=== PATIENT | male | born 1990 | race Caucasian/White ===

== ENCOUNTER 2019-06-15 17:36 | Inpatient (IN) | payer MEDICAID ==
[~2019-06-15] VITALS: Ht 170.2 cm; Wt 92.1 kg
--- NOTE | 2019-06-15 17:36 | NUR ---
PT BIBA BLS TO ER BED 03
[2019-06-15 17:45] VITALS: BP 143/83
[2019-06-15] MEDS ORDERED: ONDANSETRON 4 MG/2 ML VIAL ONE (17:58)
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
--- NOTE | 2019-06-15 18:09 | NUR ---
IVP ZOFRAN GIVEN PER ERMD VERBAL ORDER.
--- NOTE | 2019-06-15 18:27 | NUR ---
XRAY AT BEDSIDE
[2019-06-15] MEDS ORDERED: ONDANSETRON 4 MG/2 ML VIAL IVP ONE (18:30)
[2019-06-15 18:31] LABS: BASOPHILS # (AUTO) 0.1 K/uL (0.00-0.22); BASOPHILS % (AUTO) 0.9 % (0.0-2.0); EOSINOPHILS # (AUTO) 0.4 K/uL (0-0.4); EOSINOPHILS % (AUTO) 3.2 % (0.0-4.0); HEMATOCRIT 44.7 % (36-52); HEMOGLOBIN 14.5 g/dL (12.0-18.0); LYMPHOCYTES # (AUTO) 5.2 K/uL (2.0-11.5); LYMPHOCYTES % (AUTO) 43.7 % (20.5-51.1); MEAN CORPUSCULAR HEMOGLOBIN 30 pg (27-31); MEAN CORPUSCULAR HGB CONC 33 g/dL (33-37); MONOCYTES # (AUTO) 0.8 K/uL (0.8-1.0); NEUTROPHILS # (AUTO) 5.4 K/uL (1.8-7.7); NEUTROPHILS % (AUTO) 45.2 % (42.2-75.2); PLATELET COUNT (AUTO) 302 K/uL (140-450); RED BLOOD CELL COUNT(AUTO) 4.91 MIL/uL (4.20-6.10); RED CELL DISTRIBUTION WIDTH 13.9 % (11.6-13.7)
--- NOTE | 2019-06-15 18:41 | NUR ---
PATIENT UNABLE TO PROVIDE URINE SAMPLE AT THIS TIME. ERMD NOTIFIED.
[2019-06-15 18:47] LABS: ALBUMIN 3.7 g/dL (3.4-5.0); ANION GAP 12.6 (8-16); CARBON DIOXIDE 27.8 mmol/L (21-32); CREATININE 0.9 mg/dL (0.6-1.3); POTASSIUM 3.4 mmol/L (3.5-5.1); TOTAL BILIRUBIN 0.2 mg/dL (0.0-1.0)
[2019-06-15] MEDS ORDERED: PIPERACILLIN/TAZOBACTAM 3.375 GM in DEXTROSE 5% 50 ML IV ONE (19:00)
[2019-06-15] MEDS ORDERED: VANCOMYCIN 1,000 MG in DEXTROSE 5% 250 ML IV ONE (19:00)
--- NOTE | 2019-06-15 19:00 | NUR ---
PATIENT IS ASLEEP AND AROUSABLE TO PAIN. DOCTOR SERA ADVISED PLACING MASK ON PATIENT FOR POSSIBLE EARLY SIGNS OF COVID 19. MASK PUT ON PT. BED AT LOWEST, LOCKED, RAILS UP X 2.
--- NOTE | 2019-06-15 19:07 | NUR ---
LEFT MESSAGE TO CALL US BACK FOR ADVICE IN R/O COVID-19
--- NOTE | 2019-06-15 19:08 | NUR ---
FLU SWAB COLLECTED.
[2019-06-15] MEDS ORDERED: PIPERACILLIN/TAZOBACTAM 3.375 GM VIAL IV ONE (19:09)
[2019-06-15] MEDS ORDERED: LORazepam 2 MG/ML VIAL IM/IVP PRN (19:15)
[2019-06-15] MEDS ORDERED: DOCUSATE SODIUM 100 MG GELCAP PO PRN (19:15)
[2019-06-15] MEDS ORDERED: ONDANSETRON 4 MG/2 ML VIAL IM/IVP PRN (19:15)
[2019-06-15] MEDS ORDERED: ACETAMINOPHEN 325 MG TAB PO PRN (19:15)
[2019-06-15] MEDS ORDERED: ALBUTEROL SULFATE/IPRATROPIU 3 ML SOL IH PRN (19:15)
[2019-06-15] MEDS ORDERED: HYDROcodone/APAP 5/325 MG 1 TAB TAB PO PRN (19:15)
[2019-06-15] MEDS ORDERED: MORPHINE SULFATE 2 MG/ML SYR IVP PRN (19:15)
[2019-06-15] MEDS ORDERED: KCL 20 MEQ/WATER INJ PREMIX 100 ML IV SCH (19:20)
[2019-06-15] MEDS ORDERED: VANCOMYCIN 1,000 MG VIAL ONE (19:37)
[2019-06-15 19:51] LABS: PROTHROMBIN TIME 9.1 secs (10.8-13.4)
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
[2019-06-15 19:57] LABS: MAGNESIUM 2.4 mg/dL (1.8-2.4); PHOSPHORUS 2.6 mg/dL (2.5-4.9); THYROID STIMULATING HORMONE 0.89 uIU/mL (0.34-3.74)
[2019-06-15 20:00] VITALS: BP 108/63
--- NOTE | 2019-06-15 20:00 | NUR ---
MD ORDERED COVID 19 PRECAUTIONS. SWAB COMPLETED AT BEDSIDE AND SENT TO LAB.
--- NOTE | 2019-06-15 20:05 | NUR ---
PROVIDED PATIENT WITH BEDPAN AND URINAL, VOIDED 900 ML OF CLEAR YELLOW URINE, COLLECTED URINE SAMPLE AND MRSA SWAB AND SENT TO LAB. STARTED ORDERS FOR IV FLUID MAINTENANCE AND IV ANTIBIOTICS-ZOSYN AND VANCOMYCIN.
[2019-06-15] MEDS ORDERED: AZITHROMYCIN 500 MG in DEXTROSE 5% 250 ML IV SCH (20:20)
[2019-06-15] MEDS: DEXT 5% / NACL 0.45% 1,000 ML IV SCH (20:30)
[2019-06-15] MEDS ORDERED: ALBUTEROL HFA MDI 90 MCG/ACTUATION 8 GM INH PRN (20:30)
[2019-06-15] MEDS ORDERED: THIAMINE 200 MG/2 ML VIAL IM SCH (20:35)
[2019-06-15] MEDS ORDERED: MULTIVITAMIN-12 10 ML, THIAMINE 100 MG, MAGNESIUM SULFATE 50% 2,000 MG, FOLIC ACID 1 MG... IV SCH ×5 (20:40)
--- NOTE | 2019-06-15 20:44 | NUR ---
Patient will be admitted to care of DR RIOS. Admited to ICU . Will go to room 1. Belongings list completed. Report to GAUDENCIO GARCIA.
[2019-06-15 21:10] LABS: APPEARANCE,URINE CLEAR (CLEAR); BILIRUBIN,URINE NEGATIVE (NEGATIVE); BLOOD, URINE NEGATIVE (NEGATIVE); COLOR,URINE YELLOW (YELLOW); LEUKOCYTE ESTERASE ,URINE NEGATIVE (NEGATIVE); NITRITE, URINE NEGATIVE (NEGATIVE); PH,URINE 6.5 (5.0-9.0); UGLUCOSE NEGATIVE (NEGATIVE)
[2019-06-15 21:22] LABS: BARBITURATE, URINE NEGATIVE ng/ml (NEG <=200); BENZODIAZEPINE, URINE NEGATIVE ng/mL (NEG <=200); CANNABINOID, URINE POSITIVE ng/mL (NEG <=50); COCAINE, URINE NEGATIVE ng/mL (NEG <=300); OPIATE, URINE NEGATIVE ng/mL (NEG <=2000); PHENCYCLIDINE SCREEN,URINE NEGATIVE ng/mL (NEG <=25)
--- NOTE | 2019-06-15 22:45 | NUR ---
PATIENT COUGHING LOUDLY AND MOANING. ORIENTED TO EMESIS BAG AT BEDSIDE. PT VOMITING YELLOW EMESIS. PROVIDED SKIN CARE AND CHANGED LINEN AND GOWNS. ORIENTED PATIENT TO EMESIS BAG AND PT REPORTS " I TRIED TO VOMIT IN THE BAG, BUT I COULDN'T". WILL PROVIDE ZOFRAN IVP.
[2019-06-15] MEDS ORDERED: AZITHROMYCIN 500 MG INJ VIAL IV ONE (22:48)
--- NOTE | 2019-06-15 23:03 | NUR ---
PHONE CALL TO DR YANEZ; VERIFIED BANANA BAG; DR YANEZ SAID TO GIVE IT IN AM WHEN PHARMACY IS HERE, ONE BAG ONLY
--- NOTE | 2019-06-15 23:20 | NUR ---
PT MOANING AND CRYING AND SAYING HE WANTS TO GO HOME AND GET OUT OF HERE. KEEPS TOSSING AND TURNING IN BED. ASKED IF HE IS IN PAIN, REPLIES HE WANTS TO PEE. PROVIDED URINAL AND VOIDED 500 ML CLEAR YELLOW URINE. PT ACCIDENTLY YANKED PERIPHERAL IV AT LEFT AC. STARTED NEW IV TO RIGHT HAND 22G. FLUSHED AND PATENT, ASYMPTOMATIC. PROVIDED ATIVAN IVP FOR AGITATION. PT RELAXES AND CALMS DOWN WITH REORIENTATION. PROVIDED WITH MORE BLANKETS AND PILLOWS.
[2019-06-15] MEDS: FOLIC ACID 1 MG TAB PO SCH (23:23)
[2019-06-15] MEDS: THIAMINE 100 MG TAB PO SCH (23:23)
[2019-06-15] MEDS: MULTIVITAMIN 1 TAB PO SCH (23:23)
[2019-06-15] MEDS: chlordiazePOXIDE 25 MG CAP PO SCH (23:24)
--- NOTE | 2019-06-15 23:35 | NUR ---
PATIENT RESPONDS TO VOICE AND LIGHT PAIN, BUT VERY DROWSY. CAN OPEN EYES WITH HARD STERNAL RUB. DIFFICULT TO FOLLOW COMMANDS. RN CONSISTENTLY REORIENTS PATIENT. PATIENT REQUESTING WATER. PROVIDED A SMALL AMOUNT OF WATER FOR SCHEDULED PO MEDS. TOLERATED WELL. SIDERAILS UP x3, BED LOCKED AND IN LOWEST POSITION. WILL CONTINUE TO MONITOR.
[2019-06-16] VITALS (7 sets, daily range): BP systolic 117–135; BP diastolic 56–106
--- NOTE | 2019-06-16 01:15 | NUR ---
ORDERED IV ANTIBIOTICS INFUSION COMPLETE, NO SIGNS OF ADVERSE REACTION. ALL MEDS GIVEN, TOLERATED WELL. NO COMPLAINTS OF NAUSEA. REORIENTED PATIENT TO CAREPLAN. ALL NEEDS MET AT THIS TIME.
--- NOTE | 2019-06-16 02:12 | NUR ---
PATIENT RESTING WELL IN BED, SELF TURNS. ON ROOM AIR, ALL VITALS WITHIN NORMAL LIMITS. IV MAINTENANCE FLUIDS INFUSING AND KCL 20 MEQ CURRENTLY INFUSING. VISIBLE CHEST RISE AND FALL, NO SIGNS/SYMPTOMS OF DISTRESS. AUDIBLE SNORING. CALL LIGHT WITHIN REACH. WILL CONTINUE TO MONITOR.
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
--- NOTE | 2019-06-16 04:45 | NUR ---
VOIDED 800 ML YELLOW CLEAR URINE
[2019-06-16] MEDS ORDERED: cefTRIAXone 1,000 MG VIAL ONE (04:55)
--- NOTE | 2019-06-16 05:43 | NUR ---
PATIENT GAVE RN 3 NUMBERS TO CALL TO CONTACT FAMILY. REQUESTING TO CALL FATHER OR MOTHER TO NOTIFY OF HIS CONDITION AND BEING ADMITTED. MADE A CALL TO PATIENTS FATHER, JAZMYN EDWARDS, CALLED TWICE WITH NO ANSWER. LEFT A MESSAGE TO CALL BACK. CALLED PATIENTS MOTHER AND UPDATED ON PATIENTS CONDITION.
[2019-06-16 06:11] LABS: BASOPHILS # (AUTO) 0.1 K/uL (0.00-0.22); BASOPHILS % (AUTO) 0.8 % (0.0-2.0); EOSINOPHILS # (AUTO) 0.1 K/uL (0-0.4); EOSINOPHILS % (AUTO) 1.4 % (0.0-4.0); HEMATOCRIT 43.4 % (36-52); HEMOGLOBIN 14.4 g/dL (12.0-18.0); LYMPHOCYTES # (AUTO) 3.2 K/uL (2.0-11.5); LYMPHOCYTES % (AUTO) 38.5 % (20.5-51.1); MEAN CORPUSCULAR HEMOGLOBIN 30 pg (27-31); MEAN CORPUSCULAR HGB CONC 33 g/dL (33-37); MEAN CORPUSCULAR VOLUME 90.7 fL (80-94); MONOCYTES # (AUTO) 0.6 K/uL (0.8-1.0); MONOCYTES % (AUTO) 6.8 % (1.7-9.3); NEUTROPHILS # (AUTO) 4.4 K/uL (1.8-7.7); NEUTROPHILS % (AUTO) 52.5 % (42.2-75.2); PLATELET COUNT (AUTO) 276 K/uL (140-450); RED BLOOD CELL COUNT(AUTO) 4.78 MIL/uL (4.20-6.10); WHITE BLOOD COUNT (AUTO) 8.3 K/uL (4.8-10.8)
[2019-06-16 06:31] LABS: CHOL/HDL RATIO 1.7 (1-4.5)
[2019-06-16 06:33] LABS: ANION GAP 13.3 (8-16); CARBON DIOXIDE 27.8 mmol/L (21-32); CREATININE 0.7 mg/dL (0.6-1.3); POTASSIUM 4.1 mmol/L (3.5-5.1)
--- NOTE | 2019-06-16 06:52 | NUR ---
RESTING WELL IN BED, SIDERAILS UP x3, HOB 30 DEGREES, CALL LIGHT WITHIN REACH, URINAL AT BEDSIDE. ON ROOM AIR, EQUAL CHEST RISE. NO SIGNS OF DISTRESS. FLACC 0. PERIPHERAL IV TO LEFT WRIST 22G, INFUSING IV FLUIDS @ 50ML/HR. WILL ENDORSE TO A.M NURSE.
[2019-06-16] MEDS ORDERED: ALBUTEROL SULFATE/IPRATROPIU 3 ML SOL IH SCH (07:00)
--- NOTE | 2019-06-16 07:09 | NUR ---
PATIENT ASLEEP AT THIS TIME. NO SOB. NO TREATMENT INDICATED.
--- NOTE | 2019-06-16 07:30 | NUR ---
RECEIVED BEDSIDE REPORT FROM KETTLEMAN RN. PT IS ASLEEP, EASILY AROUSABLE, ORIENTED. FOLLOWS COMMANDS AND ABLE TO MAKE NEEDS KNOWN. AFEBRILE. DENIES PAIN. NORMAL SINUS RHYTHM ON MONITOR. S1 S2 HEARD. PULSES PALPABLE TO ALL EXTREMITIES. CAP REFILL < 2 SEC. PT IS ON ROOM AIR, LUNGS SOUND CLEAR BILATERALLY. NO SOB, COUGH OR SIGNS OF RESPIRATORY DISTRESS NOTED. BREATHING EVEN AND UNLABORED. ABDOMEN SOFT, NONTENDER W/ ACTIVE BOWEL SOUNDS. PERIPHERAL IV G22 TO LEFT HAND ASYMPTOMATIC, PATENT AND INTACT, RUNNING IVF D5 1/2NS AT 80 ML/HR. PT IS CONTINENT BOWEL AND BLADDER. SKIN IS DRY AND WARM TO TOUCH, OLD SCAB TO LEFT HAND NOTED. HOB AT 30 DEGREES. BED IN LOWEST POSITION LOCKED. CALL LIGHT WITHIN REACH. WILL CONTINUE TO MONITOR.
[2019-06-16] MEDS: DEXT 5% / NACL 0.45% 1,000 ML IV SCH ×2 (07:43→16:10)
--- NOTE | 2019-06-16 07:45 | NUR ---
DR. RIOS AND RESIDENT GROUP IN TO SEE PT. WILL FOLLOW UP ON ORDERS.
[2019-06-16] MEDS ORDERED: FOLI1TAB90 PO (08:04)
[2019-06-16] MEDS ORDERED: MULT-405 PO (08:04)
[2019-06-16] MEDS ORDERED: LIB25 PO (08:04)
[2019-06-16] MEDS ORDERED: AZIT250T11 PO (08:04)
[2019-06-16] MEDS ORDERED: THIA-34 PO (08:04)
--- NOTE | 2019-06-16 08:30 | NUR ---
PT HAD 75% OF BREAKFAST, STATED "I FEEL NAUSEOUS AND CANNOT FINISH EVERYTHING." HOWEVER STATED HE DID NOT NEED ZOFRAN AT THIS TIME. PT WAS ABLE TO EAT INDEPENDENTLY, ON ROOM AIR, NO SOB NOTED. VSS. WILL CONTINUE TO MONITOR.
[2019-06-16] MEDS: FOLIC ACID 1 MG TAB PO SCH (08:32)
[2019-06-16] MEDS: chlordiazePOXIDE 25 MG CAP PO SCH ×3 (08:32→16:10)
[2019-06-16] MEDS: MULTIVITAMIN 1 TAB PO SCH (08:32)
[2019-06-16] MEDS: THIAMINE 100 MG TAB PO SCH (08:33)
--- NOTE | 2019-06-16 08:33 | NUR ---
MEDICATIONS ADMINISTERED ORDERED.
--- NOTE | 2019-06-16 08:44 | NUR ---
DISCHARGE PLANNING: THIS IS A 28 Y/O MALE PATIENT FROM HOME, WHO CAME IN DUE TO ALCOHOL INTOXICATION. PPAST MEDICAL HISTORY INCLUDE HTN, ADHD. INITIAL DIAGNOSIS OF R/O COVID AND PNA. CURRENT LABS INCLUDE WBC 8.3, H/H 14.4/43.4, BUN/CREA 144/4.1, BUN/CREA 7/0.7. NEGATIVE FOR INF A AND B. PCR PENDING. MRSA NARES, URINE AND BLOOD C/S PENDING. CXR SHOWED UNDEREXPANDED LUNGS WITH PULMONARY CONGESTION. ON AZITHROMYCIN AND ROCEPHIN. FOR DISCHARGE TODAY. Addendum: 06/17/19 at 1310 by Yoana Dias DC PLANNING: ARRANGED TRANSPORT WITH [employer] [facility] DIRECT[facility] TIME 5:30 HOME AD[address]ESS [address] [place] [facility] [id number] PER [facility] TRANSPORT [facility] ON [facility].
[2019-06-16] MEDS ORDERED: AZITHROMYCIN 250 MG TAB PO SCH (09:00)
--- NOTE | 2019-06-16 10:14 | NUR ---
PT SEEN AND EXAMINED BY DR. TAM. WILL FOLLOW UP ON ORDERS.
--- NOTE | 2019-06-16 10:26 | NUR ---
CHEST X-RAY AT BEDSIDE. PT TOLERATING WELL.
[2019-06-16] MEDS ORDERED: INFLUENZA VACCINE QUAD 0.5 ML SYR IMVAC PRN (11:00)
--- NOTE | 2019-06-16 11:00 | NUR ---
PT SIGNED ADMISSION PAPERWORK. ALCOHOL AND SUBSTANCE ABUSE RESOURCE PACKET GIVEN TO PT.
--- NOTE | 2019-06-16 11:30 | NUR ---
PER PT, HE HAS A PCP IN [place]. HE DOES NOT REMEMBER THE NAME OR ADDRESS BUT KNOWS THE LOCATION. INSTRUCTION GIVEN TO FOLLOW UP WITH PCP WITHIN 4 DAYS OF DISCHARGE. PT VERBALIZED UNDERSTANDING. Addendum: 06/16/19 at 1428 by Raza Bowden RN CORRECTION: INSTRUCTION GIVEN TO SELF QUARANTINE AT HOME AND PRACTICE SOCIAL DISTANCING, IF DISCHARGED. AND CALL FOR MEDICAL HELP IF SYMPTOMS SUCH FEVER, COUGH, SHORTNESS, CHEST PAIN, SWELLING, ETC. APPEARS. PT VERBALIZED UNDERSTANDING.
--- NOTE | 2019-06-16 12:10 | NUR ---
LUNCH TRAY PROVIDED. SCHEDULED MEDICATION ADMINISTERED. PT IS AFEBRILE, AAOX4, ON ROOM AIR, VSS, DENIES PAIN AT THIS TIME. SAFETY PRECAUTIONS IN PLACE. WILL CONTINUE TO MONITOR.
--- NOTE | 2019-06-16 14:00 | NUR ---
SPOKE WITH RADHA, CASEY SAW OPERATOR. PER RADHA, SHE IS STILL AWAITING RESPONSE FROM [facility] REGARDING DISCHARGE OF R/O COVID PATIENT. WILL FOLLOW UP.
--- NOTE | 2019-06-16 16:13 | NUR ---
SCHEDULED MEDICATION AND FLU VACCINE ADMINISTERED. PT TOLERATED WELL.
--- NOTE | 2019-06-16 17:45 | NUR ---
PT HAVING DINNER, NO S/SX OF ACUTE DISTRESS NOTED AT THIS TIME. VSS. SAFETY PRECAUTIONS IN PLACE, CALL LIGHT WITHIN REACH.
--- NOTE | 2019-06-16 19:03 | NUR ---
REPORT GIVEN TO FINANCIAL ADMINISTRATIVE ASSISTANT RN FOR CONTINUITY OF CARE. PT IS IN STABLE CONDITION.
--- NOTE | 2019-06-16 19:10 | NUR ---
RECEIVED REPORT FROM DAYSHIFT NURSE AT PATIENTS BEDSIDE, PATIENT RESTING WELL. EYES CLOSED, ALERT TO NAME/VOICE. ANOx4. DENIES PAIN,SOB, NAUSEA. ON ROOM AIR, LUNG SOUNDS ARE CLEAR ALL THROUGHOUT. SATURATIONS 98%, RR- 20. S1S2 ON MONITOR, HEART RATE 83 BPM. LEFT HAND PERIPHERAL IV, 22G, FLUSHED AND PATENT WITHOUT SYMPTOMS. INFUSING D51/2 NS @ 80ML. ABDOMEN LARGE ROUND AND NONTENDER, WITH ACTIVE BOWEL SOUND. PT CONTINENT, URINAL AT BEDSIDE. SKIN WARM AND DRY, AFEBRILE. SMALL HEALED SCAB AT LEFT HAND, NO DRAINAGE. PATIENT ABLE TO MOVE ALL EXTREMITIES. AND SELF TURN. ON DROPLET/CONTACT PRECAUTIONS FOR RULE OUT COVID.ORIENTED TO CARE PLAN AND TREATMENT. CALL LIGHT WITHIN REACH, BED LOCKED AND IN LOWEST POSITION, SIDERAILS UP x3.
--- NOTE | 2019-06-16 20:33 | NUR ---
RECEIVED REPORT FROM AM SHIFT. PATIENT RESTING IN BED AND APPEARS TO BE IN NO APPARENT RESPIRATORY DISTRESS AT THIS TIME: RR 17, HR 77, AND SPO2 97% ON ROOM AIR. UPPER LOBES BREATH SOUNDS: CLEAR BILATERALLY. LOWER BASES BREATH SOUNDS: CLEAR BILATERALLY. NO INDICATION FOR MDI TX AT THIS MOMENT. PT WAS INFORMED TO CALL RN OR RECORDIST CHIEF WHEN EXPERIENCING SOB PRN TX. WILL CONTINUE TO MONITOR PT.
[2019-06-16] MEDS ORDERED: NACL 0.9% 1,000 ML IV SCH (20:50)
[2019-06-16] MEDS ORDERED: CLINDAMYCIN 600 MG/4 ML VIAL ONE (21:03)
[2019-06-16] MEDS: CLINDAMYCIN 600 MG in DEXTROSE 5% 50 ML IV SCH (21:24)
--- NOTE | 2019-06-16 21:35 | NUR ---
RESTING COMFORTABLY. EYES CLOSED, ON ROOM AIR. NO SIGNS OR SYMPTOMS OF RESPIRATORY DISTRESS. FLACC 0. ADMINISTERED NEW ORDER FOR IV ANTIBIOTICS. SAFETY MEASURES IN PLACE.
--- NOTE | 2019-06-16 23:02 | NUR ---
EMPTIED PATIENTS URINAL, 800ML CLEAR YELLOW URINE. PROVIDED WIPES FOR PERINEAL CARE AND TO CLEAN HANDS. NO COMPLAINTS AT THIS TIME. PATIENT INSTABLE CONDITION. WILL CONTINUE TO MONITOR.
[2019-06-17] VITALS: BP 136/97
--- NOTE | 2019-06-17 01:36 | NUR ---
CHECKED IN ON PATIENT, WAKES UP, OPENS EYES, FOLLOWS COMMANDS, NO COMPLAINTS, GOES BACK TO SLEEP. ABLE TO SELF TURN. LEFT HAND SCAB HAS NO DRAINAGE, LEFT OPEN TO AIR. PATIENT ON ROOM AIR. CONNECTED TO PERSONAL BANKING OFFICER. ALL VITALS WITHIN NORMAL LIMITS. SKIN WARM AND DRY. CALL LIGHT WITHIN REACH, WILL CONTINUE TO MONITOR.
--- NOTE | 2019-06-17 03:15 | NUR ---
ON ROOM AIR, LUNG SOUNDS CLEAR, AWAKE AND ALERT. NO COMPLAINTS OF PAIN OR NAUSEA. PATIENT ORIENTED TO PLAN FOR DISCHARGE TODAY. REORIENTED ON ISOLATION INSTRUCTIONS FOR COVID. VERBALIZES UNDERSTANDING. INITIATED SUBSTANCE ABUSE EDUCATION, PATIENT VERBALIZES UNDERSTANDING AND REPORTS WILL TRY TO REALLY QUIT THIS TIME. PATIENT IN STABLE CONDITION. ALL VALUABLES AND CALL LIGHT WITHIN REACH.
[2019-06-17 04:00] VITALS: BP 126/46
[2019-06-17] MEDS ORDERED: CLINDAMYCIN 600 MG/4 ML VIAL ONE (04:02)
[2019-06-17] MEDS: CLINDAMYCIN 600 MG in DEXTROSE 5% 50 ML IV SCH ×2 (04:37→13:00)
--- NOTE | 2019-06-17 05:10 | NUR ---
PROVIDED PATIENT WITH TOOTHBRUSH/TOOTHPASTE AND WASH CLOTHES. STANDBY ASSISTANCE WITH MORNING CARE/SPONGE BATH. CHANGED GOWN AND SOCKS. LEFT HAND 22G PERIPHERAL IV STILL INTACT, NS INFUSING TO KEEP VEIN OPEN. MAINTAINED ON ROOM AIR, NO SHORTNESS OF BREATH OR DIFFICULTY BREATHING, NO N/V OR PAIN. PATIENT STABLE AND IN GOOD CONDITION. PROVIDED SMALL SNACK-JELLO AND CRACKERS. SAFETY MEASURES IN PLACE. WILL CONTINUE TO MONITOR.
[2019-06-17 06:16] LABS: BASOPHILS # (AUTO) 0.1 K/uL (0.00-0.22); BASOPHILS % (AUTO) 0.6 % (0.0-2.0); EOSINOPHILS # (AUTO) 0.4 K/uL (0-0.4); EOSINOPHILS % (AUTO) 4.1 % (0.0-4.0); HEMATOCRIT 45.2 % (36-52); LYMPHOCYTES # (AUTO) 2.7 K/uL (2.0-11.5); LYMPHOCYTES % (AUTO) 24.6 % (20.5-51.1); MEAN CORPUSCULAR HEMOGLOBIN 30 pg (27-31); MEAN CORPUSCULAR HGB CONC 33 g/dL (33-37); MONOCYTES # (AUTO) 0.8 K/uL (0.8-1.0); MONOCYTES % (AUTO) 7.3 % (1.7-9.3); NEUTROPHILS # (AUTO) 6.9 K/uL (1.8-7.7); NEUTROPHILS % (AUTO) 63.4 % (42.2-75.2); PLATELET COUNT (AUTO) 269 K/uL (140-450); RED BLOOD CELL COUNT(AUTO) 4.97 MIL/uL (4.20-6.10); RED CELL DISTRIBUTION WIDTH 13.8 % (11.6-13.7); WHITE BLOOD COUNT (AUTO) 10.9 K/uL (4.8-10.8)
[2019-06-17 06:41] LABS: ANION GAP 14.4 (8-16); CARBON DIOXIDE 25.5 mmol/L (21-32); CREATININE 0.9 mg/dL (0.6-1.3); POTASSIUM 3.9 mmol/L (3.5-5.1)
[2019-06-17 08:00] VITALS: BP 131/92
[2019-06-17] MEDS: THIAMINE 100 MG TAB PO SCH (08:42)
[2019-06-17] MEDS: MULTIVITAMIN 1 TAB PO SCH (08:42)
[2019-06-17] MEDS: chlordiazePOXIDE 25 MG CAP PO SCH ×2 (08:42→13:31)
[2019-06-17] MEDS: FOLIC ACID 1 MG TAB PO SCH (08:43)
[2019-06-17] MEDS ORDERED: LEVOFLOXACIN 750 MG TAB PO SCH (09:00)
[2019-06-17] MEDS ORDERED: CLIN300C2 PO (09:11)
[2019-06-17] MEDS ORDERED: LEVO750T2 PO (09:11)
[2019-06-17] MEDS ORDERED: LACT-81 PO (09:12)
--- NOTE | 2019-06-17 10:28 | NUR ---
Patient transferred via wheelchair wearing surgical mask to [facility] unit. Report given to Vania RATLIFF. Pt aaox4, no signs of distress in room air.
[2019-06-17 10:33] VITALS: BP 145/91
--- NOTE | 2019-06-17 10:33 | NUR ---
RECEIVED REPORT FROM TRANSFER PATIENT FROM ICU NURSE FOZIA. PT RESTING IN BED. ABLE TO MAKE NEEDS KNOWN. RESPIRATIONS EVEN AND UNLABORED WITH NO SOB OR RESPIRATORY DISTRESS. SKIN WARM AND DRY TO TOUCH. IV SITE IN LEFT HAND 22G IS CLEAN, DRY, AND INTACT. SAFETY MEASURES IN PLACE. WILL CONTINUE TO MONITOR.
--- NOTE | 2019-06-17 12:45 | NUR ---
PATIENT IS AWARE OF DISCHARGE. PICKUP TIME IS 1730 WITH [facility] AND THE PATIENT IS GOING TO HIS DAD'S HOUSE IN [place]
[2019-06-17] MEDS ORDERED: LIB25 PO (13:36)
--- NOTE | 2019-06-17 13:39 | NUR ---
ADMINISTERED SCHED MED PRESCRIBED PER MD ORDER. PT TOLERATED WELL. PT REFUSED ATB. INSTRUCTED PT IMPORTANCE OF ATB AND HE SAID, "NO THAT'S OKAY. I AM FEELING MUCH BETTER." MEDICATION EDUCATION PERFORMED. PT VERBALIZED UNDERSTANDING. SAFETY MEASURES IN PLACE. WILL CONTINUE TO MONITOR.
[2019-06-17 15:38] VITALS: BP 125/75
--- NOTE | 2019-06-17 15:55 | NUR ---
WENT OVER DISCHARGE INSTRUCTIONS WITH PATIENT. PT SIGNED APPROPRIATE DOCUMENTS. INSTRUCTED PT TO VISIT ED FOR ANY SIGNS OF DISTRESS. PT VERBALIZED UNDERSTANDING. GAVE PATIENT HOME ISOLATION INSTRUCTIONS FOR NOVEL CORONAVIRUS 2019 PACKET AND WENT OVER IT WITH PATIENT. PT VERBALIZED UNDERSTANDING. PT RECEIVED FLU VACCINE 06/15 AND DOES NOT QUALIFY FOR PNA VACCINE. REMOVED INTACT IV CANNULA AND ID BAND. REMOVED TELE MONITOR. GAVE PT PRESCRIPTION FROM CHART. OBTAINED PT PHONE NUMBER FOR FUTURE NOTIFICATION: [phone]. PT CHANGED INTO HIS OWN CLOTHES AND GATHERED HIS BELONGINGS. PT IS BEING TRANSFERRED HOME VIA PRIVATE VEHICLE. PT IS STABLE Addendum: 06/17/19 at 1616 by Vania Rico RN MASK PROVIDED TO PATIENT AND FATHER (INSTALLERS MECHANICAL)
== END 2019-06-17 15:55 | disposition home or self-care (01) | DRG 137 ==
LOC: MED 17:36 → EEVIPCON 19:12 → MIC 19:12 → MTU 06-17 11:07
PROVIDERS: ADMIT General Practice; ATTEND General Practice
DX: J69.0 Pneumonitis due to inhalation of food and vomit (principal); G92 Toxic encephalopathy; E87.0 Hyperosmolality and hypernatremia; E87.8 Other disorders of electrolyte and fluid balance, not elsewhere classified; I11.9 Hypertensive heart disease without heart failure; F10.129 Alcohol abuse with intoxication, unspecified; E87.6 Hypokalemia; E66.9 Obesity, unspecified; F90.9 Attention-deficit hyperactivity disorder, unspecified type; R73.9 Hyperglycemia, unspecified; R68.89 Other general symptoms and signs; T43.621A Poisoning by amphetamines, accidental (unintentional), initial encounter; Y92.89 Other specified places as the place of occurrence of the external cause; Y90.9 Presence of alcohol in blood, level not specified; Z68.31 Body mass index [BMI] 31.0-31.9, adult; Z71.3 Dietary counseling and surveillance; Z71.51 Drug abuse counseling and surveillance of drug abuser; Z23 Encounter for immunization
CPT/HCPCS: 36415; 71045; 80048; 80053; 80305; 81003; 83605; 83690; 83735; 83880; 84100; 84443; 84484; 85025; 85610; 85730; 87040; 87081; 87086; 87804; 93005; 96374; 99285; J0456; J0696; J2060; J2405; J2543; J3370; J3480; J3490; J3535; J7030; J7060; Q0092; U0002

== ENCOUNTER 2019-06-29 02:12 | Emergency (ER) | payer MEDICAID ==
[~2019-06-29] VITALS: Ht 170.2 cm; Wt 90.7 kg
[~2019-06-29 02:12] MED LIST: CLIN300C2 PO; FOLI1TAB90 PO; LACT-81 PO; LEVO750T2 PO; LIB25 PO; MULT-405 PO; THIA-34 PO
[2019-06-29 02:17] VITALS: BP 132/75
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
--- NOTE | 2019-06-29 02:35 | NUR ---
Dr. Gaming examining patient.
[2019-06-29] MEDS ORDERED: IBUPROFEN 600 MG TAB PO ONE (02:50)
[2019-06-29 03:04] VITALS: BP 124/71
--- NOTE | 2019-06-29 03:04 | NUR ---
Patient discharged BY DR. GARIBAY with v/s stable. Written and verbal after care instructions given and explained BY DR GARIBAY. Patient alert, oriented and verbalized understanding of instructions. Ambulatory with steady gait. All questions addressed prior to discharge. ID band removed. Patient advised to follow up with PMD. Rx of NAPROSYN given. Patient educated on indication of medication including possible reaction and side effects. Opportunity to ask questions provided and answered.
== END 2019-06-29 03:04 | disposition home or self-care (01) ==
LOC: MED 02:12
DX: S20.212A Contusion of left front wall of thorax, initial encounter (principal); I10 Essential (primary) hypertension; F17.210 Nicotine dependence, cigarettes, uncomplicated; Z79.899 Other long term (current) drug therapy; X58.XXXA Exposure to other specified factors, initial encounter; Y93.89 Activity, other specified; Y92.89 Other specified places as the place of occurrence of the external cause; Y99.8 Other external cause status
CPT/HCPCS: 93005; 99283